=== PATIENT | female | born 1950 | race Caucasian/White ===

== ENCOUNTER 2019-11-06 10:00 | Outpatient (RCR) | payer MEDICARE, SELFPAY ==
[2019-08-15 11:51] VITALS: BP 104/56; PULSE 71; RESP 16; O2SAT 95
--- NOTE | 2019-09-15 09:57 | PCCPR ---
Absent Called off due to cold weather.
--- NOTE | 2019-09-25 09:02 | PCCPR ---
Pt not attending rehab today due to not feeling well. Plans to return next session.
--- NOTE | 2019-10-23 10:13 | PCCPR ---
Ammy called today, unable to make exercise session today, no reason given. Ammy will also be absent on Sunday for a doctor's appointment in [place].
--- NOTE | 2019-11-03 15:15 | PCCPR ---
Absent today, not feeling well.
--- NOTE | 2019-11-12 10:53 | PCCPR ---
Ammy called this morning and said that she had talked with Dr. Patel's office and they felt that it would be best if she hold cardiac rehab for now due to the Coronavirus outbreak. Ammy stated that she would like to be on hold for two weeks and then will notify us of her plans to return.
--- NOTE | 2019-11-19 09:30 | PCCPR ---
Program is temporarily suspended due to COVID outbreak.
--- NOTE | 2019-11-26 13:37 | PCCPR ---
Called patient in regards to the temporary closure of our department continuing until at least December 24. NO ANSWER & no voicemail...Will continue to follow
--- NOTE | 2019-12-03 10:34 | PCCPR ---
Called Ammy today for weekly check. Ammy is doing well and staying healthy, she states that she uses her treadmill at home but is not very consistent, encouraged her to continue with home exercise. Ammy stated that she did receive the exercise guidelines.
--- NOTE | 2019-12-09 13:45 | PCCPR ---
Spoke with Ammy she is walking on her Tm at home some days at least 3 day. she has not been weighing her self however mentioned her feet has not been swelling. 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 She sounded cheerful and has been home and having her groceries delivered. Encouraged her to start some light weights and she agreed. she has 2 lb weights at home.
--- NOTE | 2019-12-17 13:34 | PCCPR ---
Weekly update call-Left message.
--- NOTE | 2020-01-08 12:54 | PCCPR ---
Starting Bi-Weekly calls. Left message for patient.
--- NOTE | 2020-01-22 14:20 | PCCPR ---
Spoke with Ammy today, she is doing well, had to increase diurectics recently due to swelling. No questions or concerns at this time.
--- NOTE | 2020-02-03 13:30 | PCCPR ---
Message left for Ammy we have a reopen date. Let her know we will need to know her intent to return and some of our new guidelines for covid safety.
--- NOTE | 2020-02-20 14:30 | PCCPR ---
Ammy called again today regarding reopening. Message left to return our call to inform us of her plans to return, if no call then will discharge from program.
== END 2019-11-06 23:59 | disposition home or self-care (01) ==
LOC: ANHCPREHAB 10:00
DX: I50.89 Other heart failure (principal)
CPT/HCPCS: 93798

== ENCOUNTER 2020-05-11 11:00 | Outpatient (CLI) | payer MEDICARE, SELFPAY ==
[2020-05-11 12:14] LABS: Alanine Aminotransferase 15 U/L (4-35); Albumin Level 4.4 g/dL (3.5-5.1); Alkaline Phosphatase 69 U/L (38-126); Anion Gap 10 mmol/L (8-16); Aspartate Amino Transferase 19 U/L (14-36); Bilirubin,Total 0.8 mg/dL (0.2-1.3); Blood Urea Nitrogen 27 mg/dL (7-17); Calcium 9.3 mg/dL (8.4-10.2); Carbon Dioxide 33 mmol/L (22-30); Chloride 95 mmol/L (98-107); Cholesterol 163 mg/dL (0-200); Estimated Glomerular Filt Rate > 60; Glucose 211 mg/dL (65-105); HDL Direct 44 mg/dL; Potassium 4.2 mmol/L (3.4-5.0); Sodium 138 mmol/L (137-145); Triglycerides 179 mg/dL (<150)
[2020-05-11 12:18] LABS: Hemoglobin A1C 7.9 % (<5.7)
[2020-05-11 12:25] LABS: LDL Cholesterol Direct 84 mg/dL
[2020-05-11 12:30] LABS: Creatinine Urine 180.5 mg/dL
== END 2020-05-11 11:01 | disposition home or self-care (01) ==
DX: I50.22 Chronic systolic (congestive) heart failure (principal); E11.9 Type 2 diabetes mellitus without complications; E78.00 Pure hypercholesterolemia, unspecified; G47.9 Sleep disorder, unspecified; I10 Essential (primary) hypertension; I25.5 Ischemic cardiomyopathy; L98.9 Disorder of the skin and subcutaneous tissue, unspecified; Z12.11 Encounter for screening for malignant neoplasm of colon; I42.0 Dilated cardiomyopathy
CPT/HCPCS: 36415; 80053; 80061; 82043; 83036

== ENCOUNTER 2020-05-15 08:14 | Outpatient (CLI) | payer MEDICARE, SELFPAY ==
[2020-05-15 09:19] LABS: Basophils Percent Auto 0.5 % (0.2-1.2); Eosinophils Absolute Auto 0.2 K/mm3 (0-0.3); Eosinophils Percent Auto 2.5 % (0-4.4); Hematocrit 37.3 % (37.0-47.0); Hemoglobin 12.3 g/dL (12.0-15.0); Immature Granulocyte Absolute 0.04 K/mm3 (0.00-0.031); Immature Granulocyte Percent A 0.5 % (0-0.5); Lymphocytes Absolute Auto 1.64 K/mm3 (0.9-3.2); Lymphocytes Percent Auto 21.2 % (18.3-44.2); Mean Corpuscular Hemoglobin 30.8 pg (26-34); Mean Corpuscular Volume 93.3 fl (80-100); Mean Platelet Volume 10.4 fl (7.4-10.4); Monocytes Absolute Auto 0.5 K/mm3 (0.1-0.6); Monocytes Percent Auto 5.8 % (2.6-8.5); Neutrophils Absolute Auto 5.4 K/mm3 (1.3-6.7); Neutrophils Percent Auto 69.5 % (45.5-73.1); Platelet Count Result 238 k/mm3 (150-375); Red Cell Distribution Width 14.4 % (11.5-14.5); White Blood Count 7.8 K/mm3 (4.5-10.0)
[2020-05-15 09:49] LABS: NT Pro B Type Natriuretic Pept 908 PG/ML (5-100)
== END 2020-05-15 08:15 | disposition home or self-care (01) ==
DX: I42.0 Dilated cardiomyopathy (principal); I50.22 Chronic systolic (congestive) heart failure; I25.10 Atherosclerotic heart disease of native coronary artery without angina pectoris
CPT/HCPCS: 36415; 83880; 85025; 85610

== ENCOUNTER 2021-01-26 09:40 | Outpatient (CLI) | payer MEDICARE, SELFPAY ==
[2021-01-26 10:25] LABS: Basophils Percent Auto 0.5 % (0.2-1.2); Eosinophils Absolute Auto 0.2 K/mm3 (0-0.3); Eosinophils Percent Auto 2.3 % (0-4.4); Hematocrit 38.6 % (37.0-47.0); Hemoglobin 12.4 g/dL (12.0-15.0); Immature Granulocyte Absolute 0.04 K/mm3 (0.00-0.031); Immature Granulocyte Percent A 0.5 % (0-0.5); Lymphocytes Absolute Auto 1.57 K/mm3 (0.9-3.2); Lymphocytes Percent Auto 19.7 % (18.3-44.2); Mean Corpuscular HGB Conc 32.1 g/dl (32-36); Mean Corpuscular Hemoglobin 29.8 pg (26-34); Mean Corpuscular Volume 92.8 fl (80-100); Mean Platelet Volume 10.1 fl (7.4-10.4); Monocytes Absolute Auto 0.5 K/mm3 (0.1-0.6); Monocytes Percent Auto 5.8 % (2.6-8.5); Neutrophils Absolute Auto 5.7 K/mm3 (1.3-6.7); Neutrophils Percent Auto 71.2 % (45.5-73.1); Platelet Count Result 241 k/mm3 (150-375); Red Blood Count 4.16 M/mm3 (4.2-5.4); Red Cell Distribution Width 14.2 % (11.5-14.5)
[2021-01-26 10:26] LABS: Hemoglobin A1C 8.4 % (<5.7)
[2021-01-26 10:29] LABS: Alanine Aminotransferase 12 U/L (4-35); Albumin Level 4.1 g/dL (3.5-5.1); Alkaline Phosphatase 67 U/L (38-126); Anion Gap 6 mmol/L (8-16); Aspartate Amino Transferase 19 U/L (14-36); Bilirubin,Total 0.3 mg/dL (0.2-1.3); Blood Urea Nitrogen 17 mg/dL (7-17); Calcium 9.3 mg/dL (8.4-10.2); Carbon Dioxide 28 mmol/L (22-30); Chloride 105 mmol/L (98-107); Cholesterol 162 mg/dL (0-200); Estimated Glomerular Filt Rate > 60; Glucose 237 mg/dL (65-105); HDL Direct 59 mg/dL; Potassium 4.8 mmol/L (3.4-5.0); Sodium 139 mmol/L (137-145); Triglycerides 134 mg/dL (<150)
[2021-01-26 10:39] LABS: LDL Cholesterol Direct 69 mg/dL
[2021-01-26 10:54] LABS: Creatinine Urine 121.3 mg/dL
[2021-01-26 10:57] LABS: MALB Creatinine Ratio 5.4 mg/g (0-30); Microalbumin Urine Random 6.5 mg/L (0-16.7)
== END 2021-01-26 09:41 | disposition home or self-care (01) ==
DX: D14.1 Benign neoplasm of larynx (principal); E11.65 Type 2 diabetes mellitus with hyperglycemia; E78.00 Pure hypercholesterolemia, unspecified; F32.9 Major depressive disorder, single episode, unspecified; G47.9 Sleep disorder, unspecified; I10 Essential (primary) hypertension; I25.10 Atherosclerotic heart disease of native coronary artery without angina pectoris; I25.5 Ischemic cardiomyopathy; I50.22 Chronic systolic (congestive) heart failure
CPT/HCPCS: 36415; 80053; 80061; 82043; 83036; 85025